=== PATIENT | female | born 1970 | race African-American/Black ===

== ENCOUNTER 2017-06-06 15:21 | Emergency (ER) | payer OTHER ==
[~2017-06-06] VITALS: Ht 160 cm; Wt 62.6 kg
[2017-06-06 16:11] LABS: UA SPECIFIC GRAVITY 1.015 (1.005-1.035); microscopic required? YES; urine erythrocyte 2+ (NEGATIVE)
[2017-06-06 16:21] LABS: BASOPHIL % 0.3 % (0-2); PLATELET COUNT 158 x10^3mcL (130-400)
[2017-06-06 16:24] LABS: RED CELL DISTRIBUTION WIDTH 18.5 % (11.5-14.5)
[2017-06-06 16:25] LABS: AMPHETAMINE QUAL UR NONE DETECTED (NEG <=1000)
[2017-06-06 16:31] LABS: CARBON DIOXIDE 14.3 mmol/L (21-32); CHLORIDE SERUM 107 mmol/L (98-107); GFR1 > 60 mL/min; GLUCOSE SERUM 166 mg/dL (74-106); POTASSIUM SERUM 3.7 mmol/L (3.5-5.1); SODIUM SERUM 137 mmol/L (136-145)
[2017-06-06 16:35] LABS: ALKALINE PHOSPHATASE 203 U/L (46-116); ALT/SGPT 34 U/L (14-59); AST/SGOT 67 U/L (15-37); BILIRUBIN TOTAL 0.5 mg/dL (0.20-1.00); TOTAL PROTEIN, SERUM 6.8 g/dL (6.4-8.2)
[2017-06-06 16:46] LABS: FREE T4 1.13 ng/dL (0.76-1.46); FREE THYROXINE INDEX 2.8 ug/dL (1.4-4.5); T4(THYROXINE) 8.1 ug/dL (4.7-13.3)
[2017-06-06 16:57] LABS: ALBUMIN 2.3 g/dL (3.4-5.0)
[2017-06-06 17:22] LABS: T3 TOTAL 1.09 ng/mL
[2017-06-06 20:53] VITALS: BP 131/90
== END 2017-06-06 20:53 ==
LOC: ED 15:21
PROVIDERS: Specialist
DX: G40.909 Epilepsy, unspecified, not intractable, without status epilepticus (principal); R00.0 Tachycardia, unspecified; Z88.6 Allergy status to analgesic agent
CPT/HCPCS: 83880; 84439; J2060; J7030